=== PATIENT | female | born 1990 | race Caucasian/White ===

== ENCOUNTER 2017-09-22 21:47 | Inpatient (IN) | payer MEDICAID ==
[2017-09-22] MEDS: ACETAMINOPHEN 500 MG TAB PO (22:45)
[2017-09-22] MEDS: SODIUM CHLORIDE 0.9% 1L BAG IV* (22:46)
[2017-09-22 22:58] LABS: ADD UMIC YES; UR ASCORBIC ACID NEGATIVE (NEGATIVE); UR BACTERIA MODERATE /HPF (NONE SEEN); UR BILIRUBIN (Dip) NEGATIVE (NEGATIVE); UR BLOOD (Dip) NEGATIVE (NEGATIVE); UR CLARITY SLIGHTLY CLOUDY (CLEAR); UR COLOR YELLOW (YELLOW); UR GLUCOSE (Dip) NEGATIVE (NEGATIVE); UR KETONES (Dip) TRACE mg/dL (NEGATIVE); UR LEUKOCYTE ESTERASE (Dip) TRACE Leu/ul (NEGATIVE); UR NITRITE (Dip) POSITIVE (NEGATIVE); UR RBC 1 /HPF (0-5); UR SPECIFIC GRAVITY (Dip) 1.009 (1.003-1.030); UR SQUAMOUS EPITHELIAL CELL FEW /HPF (FEW); UR TOTAL PROTEIN (Dip) NEGATIVE (NEGATIVE); UR UROBILINOGEN (Dip) NEGATIVE (NEGATIVE); UR WBC 17 /HPF (0-5)
[2017-09-23 00:02] LABS: ADD MAN DIFF? NO
[2017-09-23 00:04] LABS: BASOPHIL # 0.1 10^3/ul (0.0-0.1); BASOPHILS % 0.3 % (0.0-2.0); EOSINOPHILS % 0.3 % (0.0-7.0); HEMATOCRIT 33.8 % (37.0-47.0); HEMOGLOBIN 11.7 g/dl (12.0-16.0); LYMPHOCYTES % 13.1 % (15.0-51.0); MEAN CORPUSCULAR HEMOGLOBIN 28.3 pg (29.0-33.0); MEAN CORPUSCULAR HGB CONC 34.6 g/dl (32.0-37.0); MEAN CORPUSCULAR VOLUME 81.8 fl (82.0-101.0); MONOCYTE # 0.9 10^3/ul (0.3-0.9); MONOCYTES % 6.1 % (0.0-11.0); NEUTROPHILS % 79.7 % (39.0-77.0); PLATELET COUNT 291 10^3/UL (140-415); RED BLOOD COUNT 4.13 10^6/ul (4.20-5.40); RED CELL DISTRIBUTION WIDTH 12.9 % (11.5-14.5)
[2017-09-23 00:04] LABS: WHITE BLOOD COUNT 15.1 10^3/ul (4.8-10.8)
[2017-09-23 00:40] LABS: ALANINE AMINOTRANSFERASE 41 IU/L (13-69); ALBUMIN 4.3 g/dl (3.3-4.9); ALBUMIN/GLOBULIN RATIO 1.04; ALKALINE PHOSPHATASE 108 IU/L (42-121); ANION GAP 17 (8-16); ASPARTATE AMINO TRANSFERASE 30 IU/L (15-46); BILIRUBIN,INDIRECT 1.1 mg/dl (0-1.1); BILIRUBIN,TOTAL 1.1 mg/dl (0.2-1.3); BLOOD UREA NITROGEN 6 mg/dl (7-20); CALCIUM 9.6 mg/dl (8.4-10.2); CARBON DIOXIDE 22 mmol/L (21-31); CHLORIDE 101 mmol/L (97-110); CREATININE 0.46 mg/dl (0.44-1.00); GLUCOSE 87 mg/dl (70-220); POTASSIUM 3.5 mmol/L (3.5-5.1); SODIUM 136 mmol/L (135-144); TOTAL PROTEIN 8.4 g/dl (6.1-8.1)
[2017-09-23 00:48] LABS: LACTIC ACID 2.4 mmol/L (0.5-2.0)
[2017-09-23 00:50] LABS: INR 0.88; PT RATIO 0.9
[2017-09-23 00:51] LABS: PARTIAL THROMBOPLASTIN TIME 29.3 Sec (25.0-35.0)
[2017-09-23 00:54] LABS: TROPONIN-I < 0.012 ng/ml (0.00-0.12)
[2017-09-23] MEDS: CEFTRIAXONE 1 GM/50 ML (PMX) 50 ML IVPB (01:04)
[2017-09-23] MEDS ORDERED: ONDANSETRON 4 MG INJ IV (02:00)
[2017-09-23] MEDS ORDERED: NACL 0.9% 3 ML SYG IV (02:00)
[2017-09-23] MEDS: SOD CHLORIDE 0.9% 1,000 ML IV ×6 (02:39→16:04)
[2017-09-23 03:32] LABS: LACTIC ACID 3.1 mmol/L (0.5-2.0)
[2017-09-23 05:47] LABS: LACTIC ACID 1.6 mmol/L (0.5-2.0)
[2017-09-23] MEDS: PIPER-TAZO 3.375 GM IV (PMX) 100 ML IVPB (07:07)
[2017-09-23 09:00] LABS: ADD MAN DIFF? NO
[2017-09-23] MEDS: ACETAMINOPHEN 325 MG TAB PO (09:00)
[2017-09-23 09:06] LABS: BASOPHILS % 0.3 % (0.0-2.0); EOSINOPHILS % 0.3 % (0.0-7.0); HEMATOCRIT 25.6 % (37.0-47.0); HEMOGLOBIN 8.5 g/dl (12.0-16.0); LYMPHOCYTES # 1.3 10^3/ul (0.8-2.9); MEAN CORPUSCULAR HEMOGLOBIN 27.9 pg (29.0-33.0); MEAN CORPUSCULAR HGB CONC 33.2 g/dl (32.0-37.0); MEAN CORPUSCULAR VOLUME 83.9 fl (82.0-101.0); MEAN PLATELET VOLUME 9.4 fl (7.4-10.4); MONOCYTE # 0.7 10^3/ul (0.3-0.9); MONOCYTES % 6.6 % (0.0-11.0); NEUTROPHIL # 8.8 10^3/ul (1.6-7.5); NEUTROPHILS % 80.4 % (39.0-77.0); PLATELET COUNT 225 10^3/UL (140-415); RED BLOOD COUNT 3.05 10^6/ul (4.20-5.40); RED CELL DISTRIBUTION WIDTH 13.1 % (11.5-14.5)
[2017-09-23] MEDS: FOLIC ACID 1 MG TAB PO (09:09)
[2017-09-23 09:39] LABS: ALANINE AMINOTRANSFERASE 37 IU/L (13-69); ALBUMIN 2.6 g/dl (3.3-4.9); ALBUMIN/GLOBULIN RATIO 0.86; ALKALINE PHOSPHATASE 78 IU/L (42-121); ANION GAP 11 (8-16); ASPARTATE AMINO TRANSFERASE 17 IU/L (15-46); BILIRUBIN,INDIRECT 0.7 mg/dl (0-1.1); BILIRUBIN,TOTAL 0.7 mg/dl (0.2-1.3); BLOOD UREA NITROGEN 4 mg/dl (7-20); CARBON DIOXIDE 16 mmol/L (21-31); CHLORIDE 114 mmol/L (97-110); CREATININE 0.42 mg/dl (0.44-1.00); GLUCOSE 86 mg/dl (70-220); SODIUM 138 mmol/L (135-144); TOTAL PROTEIN 5.6 g/dl (6.1-8.1)
[2017-09-23 09:57] LABS: POTASSIUM 2.9 mmol/L (3.5-5.1)
[2017-09-23 10:00] LABS: THYROID STIMULATING HORMONE 0.734 MIU/L (0.465-4.680)
[2017-09-23] MEDS: POTASSIUM CHLORIDE (SR) 20 MEQ TAB PO (10:26)
[2017-09-23 10:29] LABS: CHOLESTEROL 161 mg/dl (100-200)
[2017-09-23 10:29] LABS: HDL CHOLESTEROL 78 mg/dl (34-82); LDL CHOLESTEROL,CALCULATED 60 mg/dl; TRIGLYCERIDES 114 mg/dl (0-149)
[2017-09-23 14:36] LABS: LACTIC ACID 1.3 mmol/L (0.5-2.0); MAGNESIUM 1.5 mg/dl (1.7-2.5)
[2017-09-24] MEDS: CEFTRIAXONE 1 GM/50 ML (PMX) 50 ML IVPB (01:34)
[2017-09-24] MEDS: SOD CHLORIDE 0.9% 1,000 ML IV ×3 (03:35→21:49)
[2017-09-24] MEDS: ACETAMINOPHEN 325 MG TAB PO (06:10)
[2017-09-24 07:45] LABS: ADD MAN DIFF? NO
[2017-09-24 07:49] LABS: BASOPHILS % 0.3 % (0.0-2.0); EOSINOPHILS # 0.3 10^3/ul (0.0-0.5); EOSINOPHILS % 2.2 % (0.0-7.0); HEMATOCRIT 27.5 % (37.0-47.0); HEMOGLOBIN 9.3 g/dl (12.0-16.0); LYMPHOCYTES # 2.1 10^3/ul (0.8-2.9); LYMPHOCYTES % 16.4 % (15.0-51.0); MEAN CORPUSCULAR HEMOGLOBIN 28.5 pg (29.0-33.0); MEAN CORPUSCULAR HGB CONC 33.8 g/dl (32.0-37.0); MEAN CORPUSCULAR VOLUME 84.4 fl (82.0-101.0); MEAN PLATELET VOLUME 9.8 fl (7.4-10.4); NEUTROPHIL # 9.4 10^3/ul (1.6-7.5); NEUTROPHILS % 72.5 % (39.0-77.0); PLATELET COUNT 228 10^3/UL (140-415); RED BLOOD COUNT 3.26 10^6/ul (4.20-5.40); RED CELL DISTRIBUTION WIDTH 13.2 % (11.5-14.5)
[2017-09-24 08:09] LABS: ANION GAP 9 (8-16); BLOOD UREA NITROGEN 5 mg/dl (7-20); CALCIUM 8.6 mg/dl (8.4-10.2); CARBON DIOXIDE 20 mmol/L (21-31); CHLORIDE 109 mmol/L (97-110); CREATININE 0.38 mg/dl (0.44-1.00); GLUCOSE 74 mg/dl (70-220); MAGNESIUM 1.3 mg/dl (1.7-2.5); PHOSPHORUS 3.6 mg/dl (2.5-4.9); POTASSIUM 3.3 mmol/L (3.5-5.1); SODIUM 135 mmol/L (135-144)
[2017-09-24] MEDS: FOLIC ACID 1 MG TAB PO (08:13)
[2017-09-24] MEDS: MAGNESIUM SULFATE 3 GM in DEXTROSE 5% 100 ML IVPB (10:40)
[2017-09-24] MEDS: POTASSIUM CHLORIDE (SR) 20 MEQ TAB PO (10:40)
[2017-09-25] MEDS: SOD CHLORIDE 0.9% 1,000 ML IV ×4 (00:30→16:19)
[2017-09-25] MEDS: CEFTRIAXONE 1 GM/50 ML (PMX) 50 ML IVPB (03:33)
[2017-09-25 05:12] LABS: ADD MAN DIFF? NO
[2017-09-25 05:22] LABS: BASOPHILS % 0.3 % (0.0-2.0); EOSINOPHILS # 0.4 10^3/ul (0.0-0.5); EOSINOPHILS % 4.2 % (0.0-7.0); HEMATOCRIT 27.8 % (37.0-47.0); HEMOGLOBIN 9.2 g/dl (12.0-16.0); LYMPHOCYTES % 22.8 % (15.0-51.0); MEAN CORPUSCULAR HEMOGLOBIN 28.4 pg (29.0-33.0); MEAN CORPUSCULAR HGB CONC 33.1 g/dl (32.0-37.0); MEAN CORPUSCULAR VOLUME 85.8 fl (82.0-101.0); MEAN PLATELET VOLUME 9.8 fl (7.4-10.4); MONOCYTE # 0.6 10^3/ul (0.3-0.9); MONOCYTES % 6.5 % (0.0-11.0); NEUTROPHIL # 5.8 10^3/ul (1.6-7.5); NEUTROPHILS % 65.7 % (39.0-77.0); PLATELET COUNT 227 10^3/UL (140-415); RED BLOOD COUNT 3.24 10^6/ul (4.20-5.40); RED CELL DISTRIBUTION WIDTH 13.4 % (11.5-14.5)
[2017-09-25 05:22] LABS: WHITE BLOOD COUNT 8.8 10^3/ul (4.8-10.8)
[2017-09-25 05:41] LABS: BLOOD UREA NITROGEN 4 mg/dl (7-20); CARBON DIOXIDE 20 mmol/L (21-31); CHLORIDE 111 mmol/L (97-110); GLUCOSE 78 mg/dl (70-220); MAGNESIUM 1.7 mg/dl (1.7-2.5)
[2017-09-25 07:02] LABS: ANION GAP 11 (8-16); CREATININE 0.37 mg/dl (0.44-1.00); PHOSPHORUS 2.7 mg/dl (2.5-4.9); POTASSIUM 4.1 mmol/L (3.5-5.1); SODIUM 138 mmol/L (135-144)
[2017-09-25] MEDS: FOLIC ACID 1 MG TAB PO (08:27)
[2017-09-25] MEDS: CEPHALEXIN 500 MG CAP PO ×2 (13:33→21:18)
[2017-09-26] MEDS: CEPHALEXIN 500 MG CAP PO ×3 (05:40→21:03)
[2017-09-26] MEDS: FOLIC ACID 1 MG TAB PO (08:22)
== END 2017-09-26 21:05 | disposition home or self-care (01) | DRG 781 ==
LOC: PP2 09-24 11:50 → FTE 21:47 → MS4 09-23 01:33
PROC: 06HM33Z Insertion of Infusion Device into Right Femoral Vein, Percutaneous Approach (ICD-10-PCS; principal; 2017-09-23)
DX: O98.812 Other maternal infectious and parasitic diseases complicating pregnancy, second trimester (principal); R65.20 Severe sepsis without septic shock; A41.9 Sepsis, unspecified organism; I95.9 Hypotension, unspecified; E87.6 Hypokalemia; O23.42 Unspecified infection of urinary tract in pregnancy, second trimester; B96.1 Klebsiella pneumoniae [K. pneumoniae] as the cause of diseases classified elsewhere; R26.9 Unspecified abnormalities of gait and mobility; Z85.72 Personal history of non-Hodgkin lymphomas; Z3A.16 16 weeks gestation of pregnancy
CPT/HCPCS: 36415; 76775; 76805; 80048; 80053; 80061; 81001; 83036; 83605; 83735; 84100; 84443; 84484; 84702; 85025; 85610; 85730; 86900; 86901; 87040; 87075; 87086; 87400; 93005; 96361; 96365; 96366; 96367; 99291-25

== ENCOUNTER 2018-02-15 12:20 | Inpatient (IN) | payer MEDICAID ==
[~2018-02-15 12:20] MED LIST: OXYTOCIN 30 UNITS/LR 500 ML BAG IV
[2018-02-15] MEDS ORDERED: MISOPROSTOL 200 MCG TAB PR (13:00)
[2018-02-15] MEDS ORDERED: LIDOCAINE 1% (MPF) 30 ML INJ INJ (13:00)
[2018-02-15] MEDS ORDERED: IBUPROFEN 600 MG TAB PO (13:00)
[2018-02-15] MEDS ORDERED: OXYTOCIN 30 UNITS/LR 500 ML IV ×2 (13:00)
[2018-02-15] MEDS ORDERED: CARBOPROST 250 MCG INJ IM (13:00)
[2018-02-15] MEDS ORDERED: BUTORPHANOL 2 MG INJ IV (13:00)
[2018-02-15] MEDS ORDERED: METHYLERGONOVINE 0.2 MG INJ IM (13:00)
[2018-02-15 13:03] LABS: ADD MAN DIFF? NO
[2018-02-15 13:05] LABS: BASOPHIL # 0.1 10^3/ul (0.0-0.1); BASOPHILS % 0.5 % (0.0-2.0); EOSINOPHILS # 0.2 10^3/ul (0.0-0.5); EOSINOPHILS % 1.6 % (0.0-7.0); HEMATOCRIT 44.1 % (37.0-47.0); HEMOGLOBIN 14.6 g/dl (12.0-16.0); LYMPHOCYTES # 2.9 10^3/ul (0.8-2.9); LYMPHOCYTES % 22.3 % (15.0-51.0); MEAN CORPUSCULAR HEMOGLOBIN 28.7 pg (29.0-33.0); MEAN CORPUSCULAR HGB CONC 33.1 g/dl (32.0-37.0); MEAN CORPUSCULAR VOLUME 86.8 fl (82.0-101.0); MEAN PLATELET VOLUME 10.7 fl (7.4-10.4); MONOCYTE # 0.6 10^3/ul (0.3-0.9); MONOCYTES % 4.7 % (0.0-11.0); NEUTROPHILS % 69.5 % (39.0-77.0); PLATELET COUNT 238 10^3/UL (140-415); RED BLOOD COUNT 5.08 10^6/ul (4.20-5.40); RED CELL DISTRIBUTION WIDTH 13.9 % (11.5-14.5)
[2018-02-15 13:05] LABS: WHITE BLOOD COUNT 12.9 10^3/ul (4.8-10.8)
[2018-02-15] MEDS: LACTATED RINGER'S 1,000 ML IV ×3 (13:06→18:25)
[2018-02-15 13:32] LABS: INR 0.75; PROTIME 10.6 Sec (11.9-14.9); PT RATIO 0.8
[2018-02-15 13:33] LABS: PARTIAL THROMBOPLASTIN TIME 24.4 Sec (25.0-35.0)
[2018-02-15] MEDS ORDERED: FENTAnyl 2MCG/ML-ROPIV 0.2% 100 ML (14:59)
[2018-02-15 15:14] LABS: HEPATITIS B SURFACE ANTIGEN POSITIVE (NEGATIVE)
[2018-02-15] MEDS ORDERED: ZOLPIDEM 5 MG TAB PO ×2 (15:30→21:30)
[2018-02-15] MEDS ORDERED: DIPHENHYDRAMINE 50 MG INJ IV ×3 (15:30→21:30)
[2018-02-15] MEDS ORDERED: HYDROmorphONE 0.5 MG/0.5 ML SYG IV ×2 (15:30→21:30)
[2018-02-15] MEDS ORDERED: NALOXONE (0.4 MG/ML) INJ IV ×2 (15:30→21:30)
[2018-02-15] MEDS ORDERED: FENTAnyl 2MCG/ML-ROPIV 0.2% 100 ML BAG EPI (15:30)
[2018-02-15] MEDS ORDERED: ONDANSETRON 4 MG INJ IV ×3 (15:30→21:30)
[2018-02-15] MEDS ORDERED: KETOROLAC 30 MG INJ IV ×2 (15:30→21:30)
[2018-02-15 15:32] LABS: RAPID PLASMA REAGIN NONREACTIVE (NR)
[2018-02-15 16:03] LABS: ADD UMIC YES; UR ASCORBIC ACID NEGATIVE (NEGATIVE); UR BACTERIA FEW /HPF (NONE SEEN); UR BILIRUBIN (Dip) NEGATIVE (NEGATIVE); UR BLOOD (Dip) 1+ mg/dL (NEGATIVE); UR CLARITY CLEAR (CLEAR); UR COLOR YELLOW (YELLOW); UR GLUCOSE (Dip) NEGATIVE (NEGATIVE); UR KETONES (Dip) NEGATIVE (NEGATIVE); UR LEUKOCYTE ESTERASE (Dip) NEGATIVE Leu/ul (NEGATIVE); UR NITRITE (Dip) NEGATIVE (NEGATIVE); UR RBC 13 /HPF (0-5); UR SPECIFIC GRAVITY (Dip) 1.009 (1.003-1.030); UR SQUAMOUS EPITHELIAL CELL FEW /HPF (FEW); UR TOTAL PROTEIN (Dip) NEGATIVE (NEGATIVE); UR UROBILINOGEN (Dip) NEGATIVE (NEGATIVE); UR WBC 2 /HPF (0-5)
[2018-02-15] MEDS ORDERED: HYDROmorphONE 1 MG/5 ML IV SYRINGE IV ×3 (21:30)
[2018-02-15] MEDS ORDERED: FENTAnyl 50 MCG/ML VIAL IV ×2 (21:30)
[2018-02-15] MEDS ORDERED: morphine SULFATE/PF (10 MG/10 ML) INJ (21:43)
[2018-02-15] MEDS ORDERED: LIDOCAINE 1.5%/EPI MPF (SDV) 30 ML VIAL (21:43)
[2018-02-15] MEDS ORDERED: OXYTOCIN 10 UNIT INJ (21:43)
[2018-02-15] MEDS ORDERED: METOPROLOL 5 MG INJ (23:13)
[2018-02-15] MEDS: OXYTOCIN 30 UNITS/LR 500 ML IV (23:43)
[2018-02-16] MEDS: HYDROmorphONE 0.5 MG/0.5 ML SYG IV ×2 (00:26→12:22)
[2018-02-16] MEDS ORDERED: CARBOPROST 250 MCG INJ IM (02:00)
[2018-02-16] MEDS ORDERED: OXYTOCIN 30 UNITS/LR 500 ML IV (02:00)
[2018-02-16] MEDS ORDERED: METHYLERGONOVINE 0.2 MG INJ IM (02:00)
[2018-02-16] MEDS ORDERED: LANOLIN 7 GM TUBE TOP (02:00)
[2018-02-16] MEDS ORDERED: MISOPROSTOL 200 MCG TAB PR (02:00)
[2018-02-16] MEDS ORDERED: NA PHOSPHATE/BIPHOS 133 ML ENEMA PR (02:00)
[2018-02-16] MEDS: KETOROLAC 30 MG INJ IV ×3 (02:42→17:51)
[2018-02-16] MEDS: CEFAZOLIN 2 GM/50 ML (PMX) 50 ML IV ×3 (02:42→17:51)
[2018-02-16] MEDS: LACTATED RINGER'S 1,000 ML IV ×3 (04:58→17:45)
[2018-02-16] MEDS: CLINDAMYCIN 300 MG CAP PO ×3 (06:27→17:52)
[2018-02-16 07:03] LABS: ADD MAN DIFF? NO
[2018-02-16 07:18] LABS: BASOPHIL # 0.1 10^3/ul (0.0-0.1); BASOPHILS % 0.4 % (0.0-2.0); EOSINOPHILS % 0.2 % (0.0-7.0); HEMATOCRIT 30.2 % (37.0-47.0); HEMOGLOBIN 10.2 g/dl (12.0-16.0); LYMPHOCYTES # 1.6 10^3/ul (0.8-2.9); LYMPHOCYTES % 9.5 % (15.0-51.0); MEAN CORPUSCULAR HEMOGLOBIN 29.1 pg (29.0-33.0); MEAN CORPUSCULAR HGB CONC 33.8 g/dl (32.0-37.0); MEAN CORPUSCULAR VOLUME 86.3 fl (82.0-101.0); MEAN PLATELET VOLUME 10.7 fl (7.4-10.4); MONOCYTE # 0.8 10^3/ul (0.3-0.9); MONOCYTES % 4.8 % (0.0-11.0); NEUTROPHIL # 14.4 10^3/ul (1.6-7.5); NEUTROPHILS % 84.6 % (39.0-77.0); PLATELET COUNT 170 10^3/UL (140-415)
[2018-02-16 08:56] LABS: HEPATITIS B SURFACE ANTIGEN REACTIVE (NON-REACTIVE)
[2018-02-16] MEDS: MINERAL OIL 30ML CUP TOP (09:48)
[2018-02-16] MEDS: SENNA/DOCUSATE NA (8.6MG/50MG) TAB PO ×2 (10:01→20:36)
[2018-02-16 16:41] LABS: RHOGAM PROFILE 1 1
[2018-02-16] MEDS: IBUPROFEN 800 MG TAB PO (21:55)
[2018-02-16] MEDS: OXYCODONE/ACETAMINOPHEN (5/325) TAB PO (22:35)
[2018-02-17] MEDS: CLINDAMYCIN 300 MG CAP PO ×4 (00:14→18:30)
[2018-02-17] MEDS: OXYCODONE/ACETAMINOPHEN (5/325) TAB PO ×3 (04:30→18:35)
[2018-02-17] MEDS: IBUPROFEN 800 MG TAB PO ×3 (05:41→22:12)
[2018-02-17] MEDS: HYDROCODONE/APAP (5/325) TAB PO ×2 (06:17→10:41)
[2018-02-17 07:22] LABS: ADD MAN DIFF? NO
[2018-02-17 07:42] LABS: WHITE BLOOD COUNT 14.7 10^3/ul (4.8-10.8)
[2018-02-17 07:42] LABS: BASOPHIL # 0.1 10^3/ul (0.0-0.1); BASOPHILS % 0.4 % (0.0-2.0); EOSINOPHILS # 0.4 10^3/ul (0.0-0.5); EOSINOPHILS % 2.7 % (0.0-7.0); HEMATOCRIT 29.8 % (37.0-47.0); LYMPHOCYTES # 2.3 10^3/ul (0.8-2.9); LYMPHOCYTES % 15.4 % (15.0-51.0); MEAN CORPUSCULAR HEMOGLOBIN 29.3 pg (29.0-33.0); MEAN CORPUSCULAR HGB CONC 33.6 g/dl (32.0-37.0); MEAN CORPUSCULAR VOLUME 87.4 fl (82.0-101.0); MEAN PLATELET VOLUME 10.7 fl (7.4-10.4); MONOCYTE # 0.9 10^3/ul (0.3-0.9); MONOCYTES % 5.9 % (0.0-11.0); NEUTROPHILS % 74.5 % (39.0-77.0); PLATELET COUNT 170 10^3/UL (140-415); RED BLOOD COUNT 3.41 10^6/ul (4.20-5.40); RED CELL DISTRIBUTION WIDTH 14.4 % (11.5-14.5)
[2018-02-17] MEDS: LACTATED RINGER'S 1,000 ML IV (09:40)
[2018-02-17] MEDS: SENNA/DOCUSATE NA (8.6MG/50MG) TAB PO ×2 (10:38→22:12)
[2018-02-17] MEDS: BISACODYL 10 MG SUPP PR ×2 (11:00→14:20)
[2018-02-17] MEDS: CEPHALEXIN 500 MG CAP PO (18:30)
[2018-02-18] MEDS: CEPHALEXIN 500 MG CAP PO ×3 (00:24→12:09)
[2018-02-18] MEDS: CLINDAMYCIN 300 MG CAP PO ×3 (00:24→12:09)
[2018-02-18] MEDS: HYDROCODONE/APAP (5/325) TAB PO (01:21)
[2018-02-18] MEDS: IBUPROFEN 800 MG TAB PO ×2 (05:29→14:00)
[2018-02-18] MEDS: OXYCODONE/ACETAMINOPHEN (5/325) TAB PO ×3 (06:13→15:06)
[2018-02-18] MEDS: DIPHTH/TET/ACEL PERTUSS (ADULT) 0.5 ML VIAL IM* (09:24)
[2018-02-18] MEDS: SENNA/DOCUSATE NA (8.6MG/50MG) TAB PO (09:24)
[2018-02-18] MEDS: MEASLES,MUMPS,RUBELLA VACCINE INJ SC* (09:24)
== END 2018-02-18 17:05 | disposition home or self-care (01) | DRG 765 ==
LOC: OBT 12:20 → PP1 02-16 02:28 → L-D 12:23 → OBT 12:29 → L-D 12:35
PROVIDERS: Obstetrics & Gynecology
PROC: 10D00Z1 Extraction of Products of Conception, Low, Open Approach (ICD-10-PCS; principal; 2018-02-15 21:30)
DX: O62.1 Secondary uterine inertia (principal); G82.20 Paraplegia, unspecified; O75.89 Other specified complications of labor and delivery; O34.219 Maternal care for unspecified type scar from previous cesarean delivery; Z3A.00 Weeks of gestation of pregnancy not specified; Z37.0 Single live birth; Z99.3 Dependence on wheelchair
CPT/HCPCS: 62319; 81001; 85025; 85610; 85730; 86592; 86704; 86850; 86870; 86885; 86900; 86901; 87086; 87340; 97116; 97162; 99464